=== PATIENT | male | born 1990 | race Two or more races ===

== ENCOUNTER 2016-06-10 18:51 | Inpatient (IN) | payer OTHER ==
[~2016-06-10] VITALS: Ht 177.8 cm; Wt 78.0 kg
[~2016-06-10 18:51] MED LIST: ALBU18HF IH; ALBU8.5H3 INH; ALBU8.5H5 INH; MOME13HF2 INHALATION; PRED20TA PO; PRED50 PO
[2016-06-10] MEDS ORDERED: ALBUTEROL 0.083% (NEB) 2.5 MG/3 ML AMP HHN STA (19:01)
[2016-06-10 19:16] LABS: ADD SCAN DIFF NO
[2016-06-10 19:19] LABS: HEMATOCRIT 49.3 % (42.0-52.0); HEMOGLOBIN 16.6 g/dl (14.0-18.0); MEAN CORPUSCULAR HGB CONC 33.7 g/dl (32.0-37.0); MEAN PLATELET VOLUME 9.1 fl (7.4-10.4); PLATELET COUNT 264 10^3/UL (140-415); RED BLOOD COUNT 5.73 10^6/ul (4.70-6.10); RED CELL DISTRIBUTION WIDTH 11.5 % (11.5-14.5); WHITE BLOOD COUNT 2.8 10^3/ul (4.8-10.8)
[2016-06-10] MEDS ORDERED: IPRATROPIUM (NEB) 0.5 MG/2.5 ML AMP INH ONE (19:30)
--- NOTE | 2016-06-10 19:39 | RADRPT ---
PROCEDURE: XR Chest. CLINICAL INDICATION: Dyspnea. TECHNIQUE: Single frontal view of the chest was obtained COMPARISON: None FINDINGS: The heart and mediastinum are within normal limits. Portable technique accentuates pulmonary vascular markings. There is no pleural effusion or pneumothorax. IMPRESSION: No acute disease. RPTAT: [facility] Physician Demarco Date Time Electronically viewed and signed by Janice Pitts Physician on 06/10/2016 19:39 RS/
[2016-06-10 19:57] LABS: POTASSIUM 3.9 mmol/L (3.5-5.1)
[2016-06-10 20:00] LABS: CALCIUM 9.1 mg/dl (8.4-10.2); CREATININE 1.19 mg/dl (0.61-1.24)
[2016-06-10] MEDS ORDERED: SOD CHLORIDE 0.9% 1,000 ML IV STA (20:06)
[2016-06-10 20:33] LABS: EOSINOPHILS # 0.1 10^3/ul (0.0-0.5); LYMPHOCYTES # 1.2 10^3/ul (0.8-2.9); NEUTROPHIL # 1.4 10^3/ul (1.6-7.5)
[2016-06-10] MEDS ORDERED: ACETAMINOPHEN 500 MG TAB ONE (21:06)
[2016-06-10] MEDS ORDERED: ACETAMINOPHEN 500 MG TAB PO STA (21:07)
[2016-06-10 21:32] LABS: ADD UMIC NO; URINE BILIRUBIN (Dip) NEGATIVE (NEGATIVE); URINE BLOOD (Dip) NEGATIVE (NEGATIVE); URINE COLOR LT. YELLOW (YELLOW); URINE GLUCOSE (Dip) NEGATIVE (NEGATIVE); URINE KETONES (Dip) NEGATIVE (NEGATIVE); URINE LEUKOCYTE ESTERASE (Dip) NEGATIVE (NEGATIVE); URINE NITRITE (Dip) NEGATIVE (NEGATIVE); URINE TOTAL PROTEIN (Dip) NEGATIVE (NEGATIVE); URINE UROBILINOGEN (Dip) 0.2 E.U./dL (0.1-1.0)
[2016-06-10] MEDS ORDERED: CEFEPIME 2GM/50 ML (PMX) 50 ML IVPB STA (22:10)
--- NOTE | 2016-06-10 22:11 | RADRPT ---
PROCEDURE: CT Abdomen and Pelvis without contrast. CLINICAL INDICATION: Abdominal and pelvic pain. TECHNIQUE: CT scan of the abdomen and pelvis without contrast was performed. Coronal and sagittal reformatted images were obtained from the axial source images. Images were reviewed on a high-resolu [employer] PACS workstation. Total exam DLP is 683.52 mGy-cm. CTDIvol is 11.65 mGy. One or more of the f ollowing dose reduction techniques were used: Automated exposure control, adjustment of the mA and/o r kV according to patient size, use of iterative reconstruction technique. COMPARISON: None. FINDINGS: The lung bases are normal. There is no pleural effusion. The liver is normal in size and diffusely decreased in attenuation. There is no focal hepatic lesio n. The gallbladder and bile ducts are normal. The spleen is normal in size. There is no focal splenic lesion. Both adrenals are normal with no enlargement or mass. The pancreas is unremarkable with no mass or evidence of pancreatitis. There is no renal mass or hydronephrosis. There is no renal calculus or ureteral calculus. The abdominal aorta is not dilated. There is no retroperitoneal lymphadenopathy or mass. There is no pelvic lymphadenopathy or mass. The bladder and distal ureters are normal. The periappendiceal region is unremarkable with no evidence of appendicitis. The appendix is well se en and appears normal. The bowel and mesentery are normal. There is no free fluid or free gas. The osseous structures are unremarkable with no fracture or lytic lesion. IMPRESSION: 1. Fatty metamorphosis of the liver. 2. No urinary tract calculus or hydronephrosis. 3. Normal appendix. 4. Otherwise normal CT scan of the abdomen and pelvis. RPTAT: QQ .Daniel Holt MD, MD Date Time Electronically viewed and signed by .Daniel Holt MD, MD on 06/10/2016 22:11 .R/
[2016-06-10] MEDS ORDERED: VANCOMYCIN 1 GM (PMX) 250 ML IVPB ONE (22:30)
[2016-06-10] MEDS ORDERED: SOD CHLORIDE 0.9% 1,000 ML IV SCH (22:46)
--- NOTE | 2016-06-10 22:52 | ERA ---
ER Documentation Chief Complaint Date/Time DATE: 06/10/16 TIME: 22:48 Chief Complaint Colds, cough w/yellow flame for 3 days HPI This is a 25-year-old male who presents to the emergency room for evaluation of fever, chills, cough productive of yellow phlegm for the past 3 days. The patient states that his father does have pneumonia. The patient was brought to the emergency room for further evaluation. He has not been on any medications at home and denies any aggravating or relieving factors for his symptoms. ROS All systems reviewed and are negative except as per history of present illness. Medications Home Meds Active Scripts Mometasone-Formoterol (Dulera) 100-5 Mcg - 13 Gm Hfa.aer.ad, 2 PUFFS INHALATION BID, #1 INHALER Prov:DONI HERRERA NP 03/07/16 Albuterol Sulfate* (Ventolin HFA*) 18 Gm Hfa.aer.ad, 2 PUFF IH Q4H Y for WHEEZING AND RESP DISTRESS, #1 EA Prov:HERO LINDA MD 11/30/14 Discontinued Scripts Prednisone* (Prednisone*) 20 Mg Tab, 40 MG PO DAILY for 4 Days, TAB Prov:DONI HERRERA NP 03/07/16 Albuterol Sulfate* (Proair HFA*) 8.5 Gm Hfa.aer.ad, 2 PUFF INH Q4, #1 INHALER Prov:DONI HERRERA NP 03/07/16 Mometasone-Formoterol (Dulera) 100-5 Mcg - 13 Gm Hfa.aer.ad, 2 PUFFS INHALATION BID, #1 INHALER Prov:RADHA LAO PA-C 01/14/16 Albuterol Sulfate* (Proair HFA*) 8.5 Gm Hfa.aer.ad, 2 PUFF INH Q4, #1 INHALER Prov:RADHA LAO PA-C 01/14/16 Prednisone* (Prednisone*) 20 Mg Tab, 40 MG PO DAILY for 4 Days, TAB Prov:RADHA LAO PA-C 01/14/16 Albuterol Sulfate* (Albuterol Sulfate* HFA) 8.5 Gm Hfa.aer.ad, 1-2 PUFF INH Q6, #2 INHALER Prov:ANNETTA ADAMS DO 12/19/15 Prednisone (Prednisone) 50 Mg Tab, 50 MG PO DAILY for 5 Days, TAB Prov:ANNETTA ADAMS DO 02/28/15 Allergies Allergies: Coded Allergies: No Known Allergy (Unverified , 06/10/16) PMhx/Soc Medical and Surgical Hx: pt denies Surgical Hx History of Surgery: No Anesthesia Reaction: No Hx Neurological Disorder: No Hx Respiratory Disorders: Yes (asthma) Hx Cardiac Disorders: No Hx Psychiatric Problems: No Hx Miscellaneous Medical Probl: No Hx Alcohol Use: Yes (occassional) Hx Substance Use: No Hx Tobacco Use: Yes (2-3CIGS/DAY) Smoking Status: Current every day smoker Physical Exam Vitals Vital Signs Date Time Temp Pulse Resp B/P Pulse Ox O2 Delivery O2 Flow Rate FiO2 06/10/16 21:02 103.5 125 20 116/88 100 Room Air 06/10/16 19:20 108 24 98 21 06/10/16 18:58 99.7 99 20 135/88 100 Physical Exam INITIAL VITAL SIGNS: Reviewed by me GENERAL: The patient is well developed and appropriate for usual state of health, appears to be in mild distress, warm to touch HEENT: Dry mucous membranes, pupils equal, round, and reactive to light. EOMI. There is no scleral icterus. NECK: C-spine is soft and supple, there is no meningismus. There is no cervical lymphadenopathy. LUNGS: Rales auscultated in the right and left lower lobes, mild wheezing HEART: Tachycardic, no murmurs, clicks, rubs or gallops. ABDOMEN: Bilateral CVAT, otherwise soft, non-tender, non-distended. There are bowel sounds in all four quadrants. No rebound or guarding. EXTREMITIES: There is no peripheral cyanosis or edema. No focal swelling or erythema. NEUROLOGICAL: The patient moves all four extremities with 5/5 strength. Cranial nerves II - XII are intact. Normal gait. Alert and oriented SKIN: There is no apparent rash or petechiae. HEME/LYMPHATIC: There is no evidence of excessive bruising or lymphedema. PSYCHIATRIC: The patient does not appear anxious or depressed. Result Diagram: 06/10/16 3109 06/10/16 1940 Results 24 hrs Laboratory Tests Test 06/10/16 19:05 06/10/16 19:40 06/10/16 20:40 06/10/16 21:10 White Blood Count 2.810^3/ul Red Blood Count 5.7310^6/ul Hemoglobin 16.6g/dl Hematocrit 49.3% Mean Corpuscular Volume 86.0fl Mean Corpuscular Hemoglobin 29.0pg Mean Corpuscular Hemoglobin Concent 33.7g/dl Red Cell Distribution Width 11.5% Platelet Count 79336^3/UL Mean Platelet Volume 9.1fl Neutrophils % 49.0% Band Neutrophils % 4.0% Lymphocytes % 44.0% Monocytes % % Eosinophils % 3.0% Neutrophils # 1.410^3/ul Lymphocytes # 1.210^3/ul Monocytes # 10^3/ul Eosinophils # 0.110^3/ul Lactic Acid Level 2.6mmol/L 3.6mmol/L Sodium Level 138mmol/L Potassium Level 3.9mmol/L Chloride Level 104mmol/L Carbon Dioxide Level 23mmol/L Anion Gap 15 Blood Urea Nitrogen 12mg/dl Creatinine 1.19mg/dl Glucose Level 104mg/dl Calcium Level 9.1mg/dl Creatine Kinase 112IU/L Urine Color LT. YELLOW Urine Clarity CLEAR Urine pH 5.5 Urine Specific [place] 1.010 Urine Ketones NEGATIVE Urine Nitrite NEGATIVE Urine Bilirubin NEGATIVE Urine Urobilinogen 0.2 E.U./dL Urine Leukocyte Esterase NEGATIVE Urine Hemoglobin NEGATIVE Urine Glucose NEGATIVE% Urine Total Protein NEGATIVE Current Medications Medications (Trade) Dose Ordered Sig/Lucie Route PRN Reason Start Time Stop Time Status Last Admin Dose Admin Albuterol (Proventil 0.083% (Neb)) 5 mg ONCE STAT HHN 06/10/16 19:01 06/10/16 19:03 DC 06/10/16 19:20 Ipratropium [place] 0.5 mg 0.5 mg ONCE ONCE INH 06/10/16 19:30 06/10/16 19:31 DC 06/10/16 19:20 Sodium Chloride (NS) 1,000 ml @ 1,000 mls/hr Q1H STAT IV 06/10/16 20:06 06/10/16 21:05 DC 06/10/16 20:12 Acetaminophen (Tylenol Tab) 500 mg STK-MED ONCE .ROUTE 06/10/16 21:06 06/10/16 21:07 DC Acetaminophen 1000 mg 1,000 mg ONCE STAT PO 06/10/16 21:07 06/10/16 21:08 DC 06/10/16 21:09 Cefepime HCl 50 ml @ 100 mls/hr ONCE STAT IVPB 06/10/16 22:10 06/10/16 22:39 DC 06/10/16 22:29 Vancomycin HCl (Vancocin) 250 ml @ 125 mls/hr ONCE ONCE IVPB 06/10/16 22:30 06/11/16 00:29 Procedures/MDM EKG: Rate/Rhythm: [Normal Sinus Rhythm] QRS, ST, T-waves: [No changes consistent w/ acute ischemia] Impression: [No evidence of ischemia or arrhythmia] Chest X-ray 1V Interpreted by me: Soft Tissue: No acute abnormalities Bones: No acute abnormalities Mediastinum/Cardiac Silhouette/Lungs: [No acute abnormalities] CT abdomen pelvis without: 1. Fatty metamorphosis of the liver. 2. No urinary tract calculus or hydronephrosis. 3. Normal appendix. 4. Otherwise normal CT scan of the abdomen and pelvis. This 25-year-old male presents to the emergency room for evaluation of generalized fatigue, a cough and fever. When I evaluated this patient originally his triage vitals were normal except for tachycardia. The patient did feel warm to the touch and I had the nurses to redo the patient's vitals which did demonstrate a fever of 103. This patient was tachycardic, he did have dry mucous membranes. A septic workup was started on this patient. He was given greater than 30 cc/kg of IV normal saline. This patient does have white blood cell count less than 3, he does have a fever and is tachycardic. He meets SIRS criteria however there is no source of infection. His chest x- ray is clear, and CT of the abdomen pelvis does not show any acute intra- abdominal pathology. My suspicion for early pneumonia as high as patient does have a cough with yellow phlegm. This patient's father does have pneumonia. The patient was started on broad-spectrum antibiotics with vancomycin and cefepime. He will be placed in for admission at this time under the care of her panel physician. We have been awaiting this patient's insurance company to call back however is been greater than 30 minutes of the patient will be admitted to panel. He will be placed on the telemetry floor. Critical Care: Excluding all billable procedures Time: 34 minutes Treatments/Evaluations: Close monitoring and treatment of unstable vital signs, cardiorespiratory, and neurologic status, while maintaining tight balance of fluid, respiratory, and cardiac interventions. Departure Diagnosis: Primary Impression: SIRS (systemic inflammatory response syndrome) Additional Impressions: Fever of unknown origin Lactic acidosis Condition: Fair KARRIE CARLSON DO Jun 10, 2016 22:52
[2016-06-10] MEDS ORDERED: ONDANSETRON 4 MG INJ IV PRN (23:00)
[2016-06-10] MEDS ORDERED: ACETAMINOPHEN 325 MG TAB PO PRN (23:00)
[2016-06-10] MEDS ORDERED: SODIUM CHLORIDE 0.9% 1L BAG IV* STA (23:03)
[2016-06-11] VITALS (13 sets, daily range): BP systolic 95–119; BP diastolic 50–73; PULSE 89–106; RESP 17–20; TEMP 101.3; Ht 177.8 cm; Wt 78.0 kg
[2016-06-11] MEDS ORDERED: ALBUTEROL/IPRATROPIUM (NEB) 3 ML AMP HHN PRN (06:30)
[2016-06-11] MEDS ORDERED: VANCOMYCIN IV PER PHARMACY XX SCH (06:30)
[2016-06-11] MEDS ORDERED: NACL 0.9% 3 ML SYG IV SCH (06:30)
[2016-06-11] MEDS: SOD CHLORIDE 0.9% 1,000 ML IV SCH ×2 (06:57→16:16)
[2016-06-11] MEDS: PIPER-TAZO 3.375 GM IV (PMX) 100 ML IVPB SCH ×3 (06:57→21:21)
--- NOTE | 2016-06-11 07:20 | HP ---
DATE OF ADMISSION: 06/10/2016 TIME SEEN: 2330. CHIEF COMPLAINT: Cough and fever. HISTORY OF PRESENT ILLNESS: The patient is a 25-year-old male with a history of asthma who presented to the emergency department with a chief complaint of cough and fever. He said his symptoms have b een going on for 3 days. The cough is productive of yellowish sputum. He denied any chest pain. He did report intermittent shortness of breath. No nausea, vomiting, abdominal pain or urinary symptom s. He did report that his father has been diagnosed with pneumonia. When patient presented to the ER, he had a temperature of 99.7 and heart rate of 99. Otherwise, the rest of his vitals were stable, including oxygen saturation of 100%, but while he was in the ER, th e patient became febrile with a temperature of 103.5 and tachycardic with a heart rate of 125. Laboratory values show a WBC of 2.8 and an initial lactic acid of 2.6, which increased to 3.6 and th en to 4.7. Urinalysis without micro was done and is not consistent with a UTI. A chest x-ray was d one and it shows no acute disease. CT of the abdomen and pelvis without contrast was done and it on ly showed fatty liver; otherwise no other findings. The patient was started on antibiotics, given I V fluid and admitted for further treatment. Influenza A and B in the ER were negative. REVIEW OF SYSTEMS: A 12-point review of systems was performed and negative except as mentioned in HP I. PAST MEDICAL HISTORY: Asthma. PAST SURGICAL HISTORY: Denies. SOCIAL HISTORY: Denies history of tobacco or illicit drug use, but drinks alcohol occasionally. ALLERGIES: NO KNOWN DRUG ALLERGIES. FAMILY HISTORY: Father currently diagnosed with pneumonia. PHYSICAL EXAMINATION: VITAL SIGNS: Blood pressure 105/70, heart rate 110, respiratory rate 20, temperature earlier was 10 3.5, oxygen saturation 100% on room air. GENERAL: No acute distress, answering questions appropriately. HEENT: No obvious head deformity. Pupils are reactive to light. Extraocular muscles intact. CARDIOVASCULAR: Tachycardic with regular rhythm. LUNGS: He has scattered minimal wheezing. ABDOMEN: Soft, nontender, nondistended. Positive bowel sounds. EXTREMITIES: No edema. NEUROLOGIC: No focal deficits. LABORATORY DATA: Pertinent positives as mentioned in HPI. IMAGING: Chest x-ray and CT abdomen and pelvis without contrast as mentioned in the HPI. IMPRESSION: 1. Sepsis as evidenced by fever, tachycardia and leukopenia, most likely secondary to developing pn eumonia. 2. History of asthma. 3. Lactic acidosis. 4. Leukopenia PLAN: He will be placed on a broad-spectrum antibiotic. We will follow up on the blood culture and urine culture results. He will receive IV fluids. As mentioned in the HPI, his influenza A and B were negative. We will provide pain medication as needed. We will consider infectious disease cons ult. Further workup and management per clinical course. Dictated By: JOSE HUDSON/NTS Conf#: [id number] DID#: [id number]
[2016-06-11] MEDS: VANCOMYCIN 1.25 GM in SOD CHLORIDE 0.9% 250 ML IVPB SCH ×2 (08:20→16:15)
[2016-06-11] MEDS: ENOXAPARIN 40 MG/0.4 ML SYG SC SCH (08:27)
[2016-06-11] MEDS: morphine 2 MG INJ IV PRN ×3 (08:28→21:32)
[2016-06-11 10:21] LABS: ADD SCAN DIFF NO
[2016-06-11 10:32] LABS: ABNORMAL IP MESSAGE 1; HEMATOCRIT 40.8 % (42.0-52.0); HEMOGLOBIN 14.1 g/dl (14.0-18.0); MEAN CORPUSCULAR HEMOGLOBIN 29.7 pg (29.0-33.0); MEAN CORPUSCULAR HGB CONC 34.6 g/dl (32.0-37.0); MEAN CORPUSCULAR VOLUME 86.1 fl (82.0-101.0); MEAN PLATELET VOLUME 9.5 fl (7.4-10.4); PLATELET COUNT 230 10^3/UL (140-415); RED BLOOD COUNT 4.74 10^6/ul (4.70-6.10); WHITE BLOOD COUNT 26.9 10^3/ul (4.8-10.8)
[2016-06-11 10:38] LABS: ALBUMIN 3.2 g/dl (3.3-4.9)
[2016-06-11 10:41] LABS: BILIRUBIN,DIRECT 0.5 mg/dl (0.00-0.20); BILIRUBIN,INDIRECT 0.6 mg/dl (0-1.1); BILIRUBIN,TOTAL 1.1 mg/dl (0.2-1.3); CREATININE 1.3 mg/dl (0.61-1.24)
[2016-06-11 10:42] LABS: ALBUMIN/GLOBULIN RATIO 1.23; CALCIUM 8.3 mg/dl (8.4-10.2); TOTAL PROTEIN 5.8 g/dl (6.1-8.1)
[2016-06-11 10:43] LABS: MAGNESIUM 1.5 mg/dl (1.7-2.5)
[2016-06-11] MEDS: SALMETEROL/FLUTICASONE 250/50 INHA INH SCH ×2 (10:47→21:20)
[2016-06-11] MEDS ORDERED: MONTELUKAST 10 MG TAB PO ONE (13:00)
--- NOTE | 2016-06-11 13:03 | PN ---
Date/Time of Note Date/Time of Note DATE: 06/11/16 TIME: 13:00 Assessment/Plan VTE Prophylaxis VTE Prophylaxis Intervention: other Lines/Catheters IV [facility]ter Type (from [facility]): Peripheral IV Urinary Cath still in place: No Assessment/Plan Problems: (1) Asthma, severe persistent Status: Chronic Comment: This is most likely bronchitis given the negative chest x-ray but the abnormal pulmonary symptoms and especially the rather obvious systemic inflammatory response syndrome. He is on antibiotics and is improving clinically. At home his home medication is Symbicort he has not been on Singulair also known as Montelukast. We will get that added into his regimen Qualifiers: Asthma complication type: with acute exacerbation Qualified Code: J45.51 - Severe persistent asthma with acute exacerbation (2) Asthma with acute exacerbation Status: Acute Comment: As above (3) Lactic acidosis Status: Resolved (4) SIRS (systemic inflammatory response syndrome) Status: Acute Comment: Improving with antibiotics (5) Liver function abnormality Status: Acute Comment: Check hepatitis serologies recheck labs in morning Subjective 24 Hr Interval Summary Free Text/Dictation Bobby Niue[place] gentleman sitting at bedside having lunch. Respiratory: shortness of breath, wheezing Cardiovascular: no complaints Gastrointestinal: no complaints Genitourinary: no complaints Exam/Review of Systems Vital Signs Vitals Vital Signs Date Time Temp Pulse Resp B/P Pulse Ox O2 Delivery O2 Flow Rate FiO2 06/11/16 12:14 98.4 86 20 110/67 95 06/11/16 09:30 Nasal Cannula 2.0 06/10/16 19:20 21 Intake and Output 06/10/16 06/10/16 06/11/16 15:00 23:00 07:00 Intake Total 1000 ml 3270 ml Output Total 1100 ml Balance 1000 ml 2170 ml Exam Constitutional: alert, oriented ENMT: mucosa pink and moist, nl external ears & nose, nl lips & teeth, nl nasal mucosa & septum Neck: non-tender, supple Respiratory: normal air movement, wheezing Cardiovascular: nl pulses, regular rate and rhythm Results Result Diagram: 06/11/16 0940 06/11/16 0940 Results 24 hrs Laboratory Tests Test 06/10/16 19:05 06/10/16 19:40 06/10/16 20:40 06/10/16 21:10 White Blood Count 2.8 L Red Blood Count 5.73 Hemoglobin 16.6 Hematocrit 49.3 Mean Corpuscular Volume 86.0 Mean Corpuscular Hemoglobin 29.0 Mean Corpuscular Hemoglobin Concent 33.7 Red Cell Distribution Width 11.5 Platelet Count 264 Mean Platelet Volume 9.1 Neutrophils % 49.0 Band Neutrophils % 4.0 Lymphocytes % 44.0 Monocytes % Eosinophils % 3.0 Neutrophils # 1.4 L Lymphocytes # 1.2 Monocytes # Eosinophils # 0.1 Lactic Acid Level 2.6 H 3.6 H Sodium Level 138 Potassium Level 3.9 Chloride Level 104 Carbon Dioxide Level 23 Anion Gap 15 Blood Urea Nitrogen 12 Creatinine 1.19 Glucose Level 104 Calcium Level 9.1 Creatine Kinase 112 Urine Color LT. YELLOW Urine Clarity CLEAR Urine pH 5.5 Urine Specific [place] 1.010 Urine Ketones NEGATIVE Urine Nitrite NEGATIVE Urine Bilirubin NEGATIVE Urine Urobilinogen 0.2 E.U./dL Urine Leukocyte Esterase NEGATIVE Urine Hemoglobin NEGATIVE Urine Glucose NEGATIVE Urine Total Protein NEGATIVE Test 06/10/16 22:33 06/11/16 09:40 Lactic Acid Level 4.7 *H 2.6 H White Blood Count 26.9 #H Red Blood Count 4.74 Hemoglobin 14.1 Hematocrit 40.8 L Mean Corpuscular Volume 86.1 Mean Corpuscular Hemoglobin 29.7 Mean Corpuscular Hemoglobin Concent 34.6 Red Cell Distribution Width 12.0 Platelet Count 230 Mean Platelet Volume 9.5 Neutrophils % Eosinophils % Neutrophils # Eosinophils # Sodium Level 140 Potassium Level 4.0 Chloride Level 106 Carbon Dioxide Level 23 Anion Gap 15 Blood Urea Nitrogen 14 Creatinine 1.30 H Glucose Level 118 Calcium Level 8.3 L Magnesium Level 1.5 L Total Bilirubin 1.1 Direct Bilirubin 0.50 H Indirect Bilirubin 0.6 Aspartate Amino Transf (AST/SGOT) 251 H Alanine Aminotransferase (ALT/SGPT) 373 H Alkaline Phosphatase 103 Lactate Dehydrogenase 900 H Total Protein 5.8 L Albumin 3.2 L Globulin 2.60 Albumin/Globulin Ratio 1.23 Medications Medications Current Medications Sodium Chloride (NS) 1,000 ml @ 100 mls/hr Q10H IV Last administered on t 06:57; Admin Dose 100 MLS/HR; Start 06/11/16 at 06:22; Stop 06/12/16 at 18:00 Ondansetron HCl (Zofran Inj) 4 mg Q6H PRN IV NAUSEA AND/OR VOMITING; Start 06/11 at 06:30 Acetaminophen (Tylenol Tab) 650 mg Q6H PRN PO PAIN LEVEL 1-3 OR FEVER; Start at 06:30 Morphine Sulfate (morphine) 2 mg Q4H PRN IV PAIN LEVEL 7-10 Last administered on 06/11/16 08:28; Admin Dose 2 MG; Start 06/11/16 at 06:30 Enoxaparin Sodium (Lovenox) 40 mg DAILY SC Last administered on 06/11/16 08:27 ; Admin Dose 40 MG; Start 06/11/16 at 09:00 Salmeterol Xinafoate/ Fluticasone 1 inh 1 inh BID INH Last administered on 10:47; Admin Dose 1 INH; Start 06/11/16 at 10:00 Piperacillin Sod/ Tazobactam Sod 100 ml @ 200 mls/hr Q6 IVPB Last administered on 06/11/16 06:57; Admin Dose 200 MLS/HR; Start 06/11/16 at 06:30 Vancomycin HCl/ Sodium Chloride (Vancocin/NS) 250 ml @ 83.333 mls/ hr Q8H IVPB Last administered on 06/11/16 08:20; Admin Dose 83.333 MLS/HR; Start 06/11/16 at 08:00 Miscellaneous Information (*Rx Drug Level Order Reminder*) VANCOMYCIN TROUGH 06/11 AT 2300 ONCE ONCE XX ; Start 06/11/16 at 23:00; Stop 06/11/16 at 23:01 SLAVA ROY MD Jun 11, 2016 13:03
[2016-06-11 13:30] LABS: LYMPHOCYTES # 0.8 10^3/ul (0.8-2.9); MONOCYTE # 1.1 10^3/ul (0.3-0.9); NEUTROPHIL # 16.1 10^3/ul (1.6-7.5)
[2016-06-11 13:31] LABS: PLATELET ESTIMATE PLT APPEAR ADEQUATE
[2016-06-11 15:22] LABS: HAAIG REFLEX REFLEX FILED
[2016-06-11 16:30] LABS: HEPATITIS B CORE ANTIBODY NEGATIVE (NEGATIVE)
[2016-06-11] MEDS: MONTELUKAST 10 MG TAB PO SCH ×2 (21:00→21:31)
[2016-06-12] VITALS (11 sets, daily range): BP systolic 112–134; BP diastolic 72–77; PULSE 79–91; RESP 19–20
[2016-06-12] MEDS: PIPER-TAZO 3.375 GM IV (PMX) 100 ML IVPB SCH ×4 (01:01→20:42)
[2016-06-12] MEDS: VANCOMYCIN 1.25 GM in SOD CHLORIDE 0.9% 250 ML IVPB SCH ×3 (01:35→16:17)
[2016-06-12] MEDS: SOD CHLORIDE 0.9% 1,000 ML IV SCH ×2 (02:22→12:04)
[2016-06-12] MEDS: ACETAMINOPHEN 325 MG TAB PO PRN ×3 (04:44→18:51)
[2016-06-12 07:44] LABS: ADD SCAN DIFF NO
[2016-06-12 07:49] LABS: HEMATOCRIT 41.1 % (42.0-52.0); HEMOGLOBIN 14.2 g/dl (14.0-18.0); MEAN CORPUSCULAR HEMOGLOBIN 29.4 pg (29.0-33.0); MEAN CORPUSCULAR HGB CONC 34.5 g/dl (32.0-37.0); MEAN CORPUSCULAR VOLUME 85.1 fl (82.0-101.0); MEAN PLATELET VOLUME 9.7 fl (7.4-10.4); PLATELET COUNT 167 10^3/UL (140-415); RED BLOOD COUNT 4.83 10^6/ul (4.70-6.10); RED CELL DISTRIBUTION WIDTH 12.2 % (11.5-14.5); WHITE BLOOD COUNT 17.9 10^3/ul (4.8-10.8)
[2016-06-12] MEDS: SALMETEROL/FLUTICASONE 250/50 INHA INH SCH ×2 (08:02→20:43)
[2016-06-12] MEDS: ENOXAPARIN 40 MG/0.4 ML SYG SC SCH (08:07)
[2016-06-12 08:15] LABS: ALBUMIN 3.3 g/dl (3.3-4.9)
[2016-06-12 08:16] LABS: POTASSIUM 3.7 mmol/L (3.5-5.1)
[2016-06-12 08:18] LABS: ALBUMIN/GLOBULIN RATIO 1.1; BILIRUBIN,DIRECT 0.2 mg/dl (0.00-0.20); BILIRUBIN,INDIRECT 0.6 mg/dl (0-1.1); BILIRUBIN,TOTAL 0.8 mg/dl (0.2-1.3); CALCIUM 8.9 mg/dl (8.4-10.2); CREATININE 1.05 mg/dl (0.61-1.24); TOTAL PROTEIN 6.3 g/dl (6.1-8.1)
[2016-06-12 08:24] LABS: MAGNESIUM 1.9 mg/dl (1.7-2.5); PHOSPHORUS 2.8 mg/dl (2.5-4.9)
[2016-06-12 10:16] LABS: EOSINOPHILS # 0.5 10^3/ul (0.0-0.5); LYMPHOCYTES # 1.8 10^3/ul (0.8-2.9); MONOCYTE # 0.5 10^3/ul (0.3-0.9); NEUTROPHIL # 12.2 10^3/ul (1.6-7.5)
--- NOTE | 2016-06-12 13:07 | PN ---
Date/Time of Note Date/Time of Note DATE: 06/12/16 TIME: 13:04 Assessment/Plan VTE Prophylaxis VTE Prophylaxis Intervention: other Lines/Catheters IV C[facility]ter Type (from [facility]): Peripheral IV Urinary Cath still in place: No Assessment/Plan Problems: (1) Asthma with acute exacerbation Status: Acute Comment: His breathing is improving with use appropriate treatment of the treatment of the underlying infection. Our blood cultures are positive for gram -negative cara. Further evaluation ongoing and treatment Qualifiers: Asthma severity: severe persistent Qualified Code: J45.51 - Severe persistent asthma with acute exacerbation (2) SIRS (systemic inflammatory response syndrome) Status: Acute Comment: His lactic levels will be rechecked. Has positive blood cultures for gram-negative rods. Given the headache even though he does not have meningeal signs and the redo CT scan of the head to make sure he does not have a bad frontal sinusitis or other issue (3) Lactic acidosis Status: Resolved Comment: Recheck (4) Liver function abnormality Status: Acute Comment: His liver chemistries have improved (5) Asthma, severe persistent Status: Chronic Comment: As above Qualifiers: Asthma complication type: with acute exacerbation Qualified Code: J45.51 - Severe persistent asthma with acute exacerbation Subjective 24 Hr Interval Summary Free Text/Dictation Patient reports that he has frontal headache. He says that light minimally bothers his eyes but he is able to move his head around without any neck pain. He reports his breathing is better than it was yesterday Constitutional: no complaints (Denies fever chills or sweats) Respiratory: no complaints (Shortness of breath has improved no more wheezing) Cardiovascular: no complaints Gastrointestinal: no complaints Genitourinary: no complaints Exam/Review of Systems Vital Signs Vitals Vital Signs Date Time Temp Pulse Resp B/P Pulse Ox O2 Delivery O2 Flow Rate FiO2 06/12/16 12:01 80 06/12/16 11:31 98.1 20 131/77 98 06/11/16 09:30 Nasal Cannula 2.0 06/10/16 19:20 21 Intake and Output 06/11/16 06/11/16 06/12/16 15:00 23:00 07:00 Intake Total 960 ml 2350 ml Output Total 3500 ml Balance 960 ml -1150 ml Exam Constitutional: alert, oriented Head: atraumatic, normocephalic Eyes: EOMI, nl conjunctiva, nl lids Neck: non-tender, supple Respiratory: clear to auscultation, normal air movement Cardiovascular: nl pulses, regular rate and rhythm Neurological: RECYCLING COORDINATOR II-XII intact, nl mental status, nl speech, nl strength, other (No meningeal signs normal reflexes) Results Result Diagram: 06/12/16 0655 06/12/16 0655 Results 24 hrs Laboratory Tests Test 06/11/16 13:09 06/11/16 14:40 06/11/16 17:55 06/11/16 23:24 Lactic Acid Level 2.9 H 3.2 H Hepatitis B Surface Antigen NEGATIVE Hepatitis B Core Total Antibody NEGATIVE Hepatitis C Antibody NEGATIVE Vancomycin Level Trough 13.9 Test 06/12/16 06:55 White Blood Count 17.9 #H Red Blood Count 4.83 Hemoglobin 14.2 Hematocrit 41.1 L Mean Corpuscular Volume 85.1 Mean Corpuscular Hemoglobin 29.4 Mean Corpuscular Hemoglobin Concent 34.5 Red Cell Distribution Width 12.2 Platelet Count 167 # Mean Platelet Volume 9.7 Neutrophils % 68.0 Band Neutrophils % 16.0 H Lymphocytes % 10.0 L Monocytes % 3.0 Eosinophils % 3.0 Neutrophils # 12.2 H Lymphocytes # 1.8 Monocytes # 0.5 Eosinophils # 0.5 Erythrocyte Sedimentation Rate 28 H Sodium Level 140 Potassium Level 3.7 Chloride Level 108 Carbon Dioxide Level 21 Anion Gap 15 Blood Urea Nitrogen 8 Creatinine 1.05 Glucose Level 120 Calcium Level 8.9 Phosphorus Level 2.8 Magnesium Level 1.9 Total Bilirubin 0.8 Direct Bilirubin 0.20 # Indirect Bilirubin 0.6 Aspartate Amino Transf (AST/SGOT) 98 #H Alanine Aminotransferase (ALT/SGPT) 259 H Alkaline Phosphatase 135 H Total Protein 6.3 Albumin 3.3 Globulin 3.00 Albumin/Globulin Ratio 1.10 Medications Medications Current Medications Sodium Chloride (NS) 1,000 ml @ 100 mls/hr Q10H IV Last administered on t 16:16; Admin Dose 100 MLS/HR; Start 06/11/16 at 06:22; Stop 06/12/16 at 18:00 Ondansetron HCl (Zofran Inj) 4 mg Q6H PRN IV NAUSEA AND/OR VOMITING; Start 06/11 at 06:30 Acetaminophen (Tylenol Tab) 650 mg Q6H PRN PO PAIN LEVEL 1-3 OR FEVER Last administered on 06/12/16 12:06; Admin Dose 650 MG; Start 06/11/16 at 06:30 Morphine Sulfate (morphine) 2 mg Q4H PRN IV PAIN LEVEL 7-10 Last administered on 06/11/16 21:32; Admin Dose 2 MG; Start 06/11/16 at 06:30 Enoxaparin Sodium (Lovenox) 40 mg DAILY SC Last administered on 06/12/16 08:07 ; Admin Dose 40 MG; Start 06/11/16 at 09:00 Salmeterol Xinafoate/ Fluticasone 1 inh 1 inh BID INH Last administered on 08:02; Admin Dose 1 INH; Start 06/11/16 at 10:00 Piperacillin Sod/ Tazobactam Sod 100 ml @ 200 mls/hr Q6 IVPB Last administered on 06/12/16 12:06; Admin Dose 200 MLS/HR; Start 06/11/16 at 06:30 Vancomycin HCl/ Sodium Chloride (Vancocin/NS) 250 ml @ 83.333 mls/ hr Q8H IVPB Last administered on 06/12/16 08:02; Admin Dose 83.333 MLS/HR; Start 06/11/16 at 08:00 Montelukast Sodium (Singulair) 10 mg HS PO Last administered on 06/11/16 21:31 ; Admin Dose 10 MG; Start 06/11/16 at 21:00 Miscellaneous Information (*Rx Drug Level Order Reminder*) VANCOMYCIN TROUGH 3 AT 0700 ONCE ONCE XX ; Start 06/13/16 at 07:00; Stop 06/13/16 at 07:01 SLAVA ROY MD Jun 12, 2016 13:07
[2016-06-12] MEDS: LEVOFLOXACIN 500 MG TAB PO SCH (13:21)
[2016-06-12] MEDS: MONTELUKAST 10 MG TAB PO SCH (20:42)
[2016-06-13] VITALS (12 sets, daily range): BP systolic 106–130; BP diastolic 57–82; PULSE 67–83; RESP 15–19
[2016-06-13] MEDS: PIPER-TAZO 3.375 GM IV (PMX) 100 ML IVPB SCH ×2 (00:30→05:54)
[2016-06-13] MEDS: ACETAMINOPHEN 325 MG TAB PO PRN ×2 (00:37→08:21)
[2016-06-13] MEDS: VANCOMYCIN 1.25 GM in SOD CHLORIDE 0.9% 250 ML IVPB SCH ×2 (00:39→10:15)
[2016-06-13] MEDS: LEVOFLOXACIN 500 MG TAB PO SCH (05:54)
--- NOTE | 2016-06-13 06:58 | RADRPT ---
PROCEDURE: CT Brain without contrast. CLINICAL INDICATION: Headaches. Sepsis. TECHNIQUE: CT scan of the brain was performed on a multidetector high-resolution CT scan. Axial im aging was obtained of the brain without contrast administration. Coronal and sagittal reformatted i mages were obtained from the axial source images. Standard CT scan of the head without contrast prot ocols were performed. The total exam CTDI equals 44.97 mGy and the total exam DLP equals 630.2 mGy-cm. One or more of the following dose reduction techniques were used: - Automated exposure control. - Adjustment of the mA and/or kV according to patient size. Use of iterative reconstruction technique. COMPARISON: None. FINDINGS: The ventricular system and peripheral CSF spaces are unremarkable. Negative for intracranial masses hemorrhages or midline shift. Bones and calvarium are intact. Paranasal sinuses and mastoids are unremarkable. IMPRESSION: 1. No evidence of intracranial masses hemorrhages or midline shift. 2. MRI of the brain with without contrast may be helpful for further evaluation. RPTAT:AAJJ Physician Billy Date Time Electronically viewed and signed by Physician Billy on 06/13/2016 06:58 /
[2016-06-13 07:33] LABS: ADD SCAN DIFF NO
[2016-06-13 07:34] LABS: BASOPHIL # 0.1 10^3/ul (0.0-0.1); BASOPHILS % 0.4 % (0.0-2.0); EOSINOPHILS # 0.6 10^3/ul (0.0-0.5); EOSINOPHILS % 4.8 % (0.0-7.0); HEMOGLOBIN 14.2 g/dl (14.0-18.0); MEAN CORPUSCULAR HGB CONC 33.8 g/dl (32.0-37.0); MEAN CORPUSCULAR VOLUME 85.7 fl (82.0-101.0); MEAN PLATELET VOLUME 9.8 fl (7.4-10.4); MONOCYTE # 0.8 10^3/ul (0.3-0.9); MONOCYTES % 6.2 % (0.0-11.0); NEUTROPHIL # 9.1 10^3/ul (1.6-7.5); NEUTROPHILS % 72.3 % (39.0-77.0); PLATELET COUNT 179 10^3/UL (140-415); RED CELL DISTRIBUTION WIDTH 12.3 % (11.5-14.5); WHITE BLOOD COUNT 12.7 10^3/ul (4.8-10.8)
[2016-06-13 07:44] LABS: ALBUMIN 3.5 g/dl (3.3-4.9)
[2016-06-13 07:45] LABS: POTASSIUM 3.7 mmol/L (3.5-5.1)
[2016-06-13 07:47] LABS: ALBUMIN/GLOBULIN RATIO 1.09; BILIRUBIN,INDIRECT 0.3 mg/dl (0-1.1); BILIRUBIN,TOTAL 0.3 mg/dl (0.2-1.3); CREATININE 0.92 mg/dl (0.61-1.24); TOTAL PROTEIN 6.7 g/dl (6.1-8.1)
[2016-06-13 07:48] LABS: CALCIUM 9.3 mg/dl (8.4-10.2)
[2016-06-13] MEDS: SALMETEROL/FLUTICASONE 250/50 INHA INH SCH ×2 (08:21→20:48)
[2016-06-13] MEDS: ENOXAPARIN 40 MG/0.4 ML SYG SC SCH (08:24)
[2016-06-13] MEDS: ONDANSETRON 4 MG INJ IV PRN ×2 (11:39→18:13)
--- NOTE | 2016-06-13 12:24 | PN ---
Date/Time of Note Date/Time of Note DATE: 06/13/16 TIME: 12:16 Assessment/Plan VTE Prophylaxis VTE Prophylaxis Intervention: LMWH Lines/Catheters IV [facility]from [facility] Peripheral IV Urinary Cath still in place: No Assessment/Plan Assessment/Plan 1. Fever with cough and yellowish sputum, likely pneumonia even chest X-ray does not show obvious sputum, change levaquin to rocephin and zithromax to treat atypical pneumonia(abnormal LFTs) 2. Headache with fever, LP r/o meningitis 3. Sepsis, improved 4. asthma, stable Subjective 24 Hr Interval Summary Free Text/Dictation still cough with yellowish sputum, headache, no neck stiffness Exam/Review of Systems Vital Signs Vitals Vital Signs Date Time Temp Pulse Resp B/P Pulse Ox O2 Delivery O2 Flow Rate FiO2 06/13/16 12:01 71 06/13/16 11:49 97.9 19 130/82 97 06/11/16 09:30 Nasal Cannula 2.0 06/10/16 19:20 21 Intake and Output 06/12/16 06/12/16 06/13/16 15:00 23:00 07:00 Intake Total 960 ml 1950 ml Output Total 1400 ml 2600 ml Balance -440 ml -650 ml Exam Constitutional: alert, oriented, well developed Psych: nl mood/affect, no complaints Head: atraumatic, normocephalic Eyes: EOMI, PERRL, nl conjunctiva, nl lids, nl sclera ENMT: nl external ears & nose, nl lips & teeth, nl nasal mucosa & septum Neck: non-tender, supple Respiratory: clear to auscultation, normal air movement, No congested cough, No crackles/rales, No diminished breath sounds, No intercostal retraction, No labored breathing, No other, No respirations, No tactile fremitus, No wheezing Cardiovascular: nl pulses, regular rate and rhythm, No S3, No S4, No bruits, No diastolic murmur, No edema, No gallop, No irregular rhythm, No jugular venous distention (JVD), No murmurs/extra sounds, No other, No rub, No systolic murmur Gastrointestinal: nl liver, spleen, non-tender, soft, No ascites, No bowel sounds, No distended, No firm, No hepatomegaly, No mass , No other, No rebound or guarding, No splenomegaly, No surgical scars, No tender Musculoskeletal: nl extremities to inspection Extremities: normal pulses, No calf tenderness, No clubbing, No cyanosis, No edema, No other, No palpable cord, No pitting pedal edema, No tenderness Neurological: WAX COATING MACHINE TENDER II-XII intact, nl mental status, nl speech, nl strength Skin: nl turgor Lymph: nl lymph nodes Results Result Diagram: 06/13/16 0700 06/13/16 0700 Results 24 hrs Laboratory Tests Test 06/12/16 14:50 06/13/16 07:00 Lactic Acid Level 0.9 0.8 White Blood Count 12.7 #H Red Blood Count 4.90 Hemoglobin 14.2 Hematocrit 42.0 Mean Corpuscular Volume 85.7 Mean Corpuscular Hemoglobin 29.0 Mean Corpuscular Hemoglobin Concent 33.8 Red Cell Distribution Width 12.3 Platelet Count 179 Mean Platelet Volume 9.8 Neutrophils % 72.3 Lymphocytes % 16.0 Monocytes % 6.2 Eosinophils % 4.8 Basophils % 0.4 Nucleated Red Blood Cells % 0.0 Neutrophils # 9.1 H Lymphocytes # 2.0 Monocytes # 0.8 Eosinophils # 0.6 H Basophils # 0.1 Nucleated Red Blood Cells # 0.0 Erythrocyte Sedimentation Rate 38.0 H Sodium Level 140 Potassium Level 3.7 Chloride Level 107 Carbon Dioxide Level 22 Anion Gap 15 Blood Urea Nitrogen 7 Creatinine 0.92 Glucose Level 98 Calcium Level 9.3 Total Bilirubin 0.3 Direct Bilirubin 0.00 # Indirect Bilirubin 0.3 Aspartate Amino Transf (AST/SGOT) 54 H Alanine Aminotransferase (ALT/SGPT) 201 H Alkaline Phosphatase 128 H Total Protein 6.7 Albumin 3.5 Globulin 3.20 Albumin/Globulin Ratio 1.09 Vancomycin Level Trough 16.5 Medications Medications Current Medications Ondansetron HCl (Zofran Inj) 4 mg Q6H PRN IV NAUSEA AND/OR VOMITING Last administered on 06/13/16 11:39; Admin Dose 4 MG; Start 06/11/16 at 06:30 Acetaminophen (Tylenol Tab) 650 mg Q6H PRN PO PAIN LEVEL 1-3 OR FEVER Last administered on 06/13/16 08:21; Admin Dose 650 MG; Start 06/11/16 at 06:30 Morphine Sulfate (morphine) 2 mg Q4H PRN IV PAIN LEVEL 7-10 Last administered on 06/11/16 21:32; Admin Dose 2 MG; Start 06/11/16 at 06:30 Enoxaparin Sodium (Lovenox) 40 mg DAILY SC Last administered on 06/13/16 08:24 ; Admin Dose 40 MG; Start 06/11/16 at 09:00 Salmeterol Xinafoate/ Fluticasone 1 inh 1 inh BID INH Last administered on 08:21; Admin Dose 1 INH; Start 06/11/16 at 10:00 Piperacillin Sod/ Tazobactam Sod (Zosyn 3.375gm/ 100 ml (Pmx)) 100 ml @ 200 mls /hr Q6 IVPB Last administered on 06/13/16 05:54; Admin Dose 200 MLS/HR; Start 06/11/16 at 06:30 Montelukast Sodium (Singulair) 10 mg HS PO Last administered on 06/12/16 20:42 ; Admin Dose 10 MG; Start 06/11/16 at 21:00 Levofloxacin 500 mg 500 mg DAILY@06 PO Last administered on 06/13/16 05:54; Admin Dose 500 MG; Start 06/12/16 at 13:30; Stop 06/18/16 at 13:29 Vancomycin HCl (Vancocin) 250 ml @ 125 mls/hr Q8H IVPB ; Start 06/13/16 at 16:00 BRAYAN COTTON MD Jun 13, 2016 12:24
[2016-06-13 13:12] LABS: INR 0.96; PROTIME 12.8 Sec (12.2-14.2)
[2016-06-13 13:13] LABS: PARTIAL THROMBOPLASTIN TIME 31.8 Sec (25.0-35.0)
[2016-06-13] MEDS ORDERED: AZITHROMYCIN 500 MG in SOD CHLORIDE 0.9% 250 ML IVPB SCH (13:30)
[2016-06-13] MEDS: CEFTRIAXONE 2 GM/50 ML (PMX) 50 ML IVPB SCH (13:59)
[2016-06-13] MEDS ORDERED: VANCOMYCIN 1 GM in NS 250 ML IVPB SCH (16:00)
--- NOTE | 2016-06-13 16:42 | RADRPT ---
PROCEDURE: Fluoroscopic guided lumbar puncture. CLINICAL INDICATION: Headache. TECHNIQUE: Prior to the procedure, informed consent was obtained. Risks including bleeding and in fection were explained to the patient. The patient understood and was willing to proceed. A proced ural pause was performed. The patient's name, date of , and procedure to be performed were oscar ified. Using local anesthetic, sterile technique, and fluoroscopic guidance, a 22-gauge spinal needle was a dvanced into the thecal sac at the L4-5 level. Opening pressure was 18 cm of water. 8 mL of clear cerebrospinal fluid was aspirated and sent for laboratory analysis. The needle was removed. A dres sing was applied. The patient tolerated the procedure well. A total of 0.1 minutes of fluoroscopy time was used. COMPARISON: None. FINDINGS: Images demonstrate the needle at the L4-5 level in the thecal sac. IMPRESSION: Satisfactory fluoroscopic guided lumbar puncture. The opening pressure was 10 cm of water. RPTAT: QQ .Daniel Holt MD, MD Date Time Electronically viewed and signed by .Daniel Holt MD, on 06/13/2016 16:41 .R/
[2016-06-13 18:12] LABS: # OF CELLS COUNTED 100
[2016-06-13 19:11] LABS: GLUCOSE,CSF 65 mg/dl (50-80)
[2016-06-13 19:47] LABS: CSF COLOR COLORLESS; CSF#TUBES REC'D 3
[2016-06-13 19:48] LABS: CSF#TUBE COUNT TUBE#3
[2016-06-13] MEDS: MONTELUKAST 10 MG TAB PO SCH (20:48)
[2016-06-14] VITALS (9 sets, daily range): BP systolic 105–127; BP diastolic 64–82; PULSE 52–74; RESP 15–20
[2016-06-14] MEDS: ACETAMINOPHEN 325 MG TAB PO PRN ×2 (01:26→08:34)
[2016-06-14 07:25] LABS: ADD SCAN DIFF NO
[2016-06-14 07:37] LABS: BASOPHIL # 0.1 10^3/ul (0.0-0.1); BASOPHILS % 0.6 % (0.0-2.0); EOSINOPHILS # 0.6 10^3/ul (0.0-0.5); EOSINOPHILS % 5.6 % (0.0-7.0); HEMATOCRIT 47.5 % (42.0-52.0); HEMOGLOBIN 16.1 g/dl (14.0-18.0); LYMPHOCYTES # 2.9 10^3/ul (0.8-2.9); LYMPHOCYTES % 26.9 % (15.0-51.0); MEAN CORPUSCULAR HEMOGLOBIN 28.8 pg (29.0-33.0); MEAN CORPUSCULAR HGB CONC 33.9 g/dl (32.0-37.0); MEAN CORPUSCULAR VOLUME 84.8 fl (82.0-101.0); MEAN PLATELET VOLUME 9.7 fl (7.4-10.4); MONOCYTE # 0.6 10^3/ul (0.3-0.9); MONOCYTES % 5.2 % (0.0-11.0); NEUTROPHIL # 6.6 10^3/ul (1.6-7.5); NEUTROPHILS % 60.6 % (39.0-77.0); PLATELET COUNT 248 10^3/UL (140-415); RED CELL DISTRIBUTION WIDTH 12.1 % (11.5-14.5); WHITE BLOOD COUNT 10.9 10^3/ul (4.8-10.8)
[2016-06-14 07:56] LABS: ALBUMIN/GLOBULIN RATIO 1.17; BILIRUBIN,INDIRECT 0.2 mg/dl (0-1.1); BILIRUBIN,TOTAL 0.2 mg/dl (0.2-1.3); CREATININE 0.91 mg/dl (0.61-1.24); TOTAL PROTEIN 7.4 g/dl (6.1-8.1)
[2016-06-14 07:57] LABS: CALCIUM 9.8 mg/dl (8.4-10.2)
[2016-06-14] MEDS: ENOXAPARIN 40 MG/0.4 ML SYG SC SCH (08:26)
[2016-06-14] MEDS: SALMETEROL/FLUTICASONE 250/50 INHA INH SCH (08:34)
[2016-06-14] MEDS ORDERED: AZITHROMYCIN 500MG/NS (PMX) 250 ML IV SCH (10:00)
[2016-06-14] MEDS: CEFTRIAXONE 2 GM/50 ML (PMX) 50 ML IVPB SCH (13:14)
[2016-06-14] MEDS ORDERED: LEVO500T10 PO (13:18)
--- NOTE | 2016-06-14 13:27 | DS ---
Date/Time of Note Date/Time of Note DATE: 06/14/16 TIME: 13:19 Discharge Summary Admission/Discharge Info Admit Date/Time Jun 10, 2016 at 22:48 Discharge Date/Time Final Diagnosis 1. Community acquired pneumonia, likely atypical, stable, omn levaquin 2. Asthma, stable 3. Abnormal liver enzymes, likely atypical pneumonia related, improving, follow up with PCP Patient Condition: Stable Hospital Course The patient is a 25-year-old male with a history of asthma who presented to the emergency department with a chief complaint of cough and fever. He said his symptoms have been going on for 3 days. The cough is productive of yellowish sputum. He denied any chest pain. He did report intermittent shortness of breath. No nausea, vomiting, abdominal pain or urinary symptoms. He did report that his father has been diagnosed with pneumonia. When patient presented to the ER, he had a temperature of 99.7 and heart rate of 99. Otherwise, the rest of his vitals were stable, including oxygen saturation of 100%, but while he was in the ER, the patient became febrile with a temperature of 103.5 and tachycardic with a heart rate of 125. Laboratory values show a WBC of 2.8 and an initial lactic acid of 2.6, which increased to 3.6 and then to 4.7. Urinalysis without micro was done and is not consistent with a UTI. A chest x-ray was done and it shows no acute disease. CT of the abdomen and pelvis without contrast was done and it only showed fatty liver; otherwise no other findings. The patient was started on antibiotics, given IV fluid and admitted for further treatment. Influenza A and B in the ER were negative. I reviewed the CXR on admission, that indicates some infiltrates at right lower lobe. Patient is treated wityh antibiotics, symptoms improved. Je will be on levaquin for 5 more days. FCor the abnormal LFTs, it is considered part of the atypical pneumonia. Patient will follow up with PCP for repeat LFTs. Hepatitis panel is negative. Patient had headache, LP was done on 06/13/2016, CSF is unremarkable. Headache is resolved today Home Meds Active Scripts Levofloxacin* (Levofloxacin*) 500 Mg Tablet, 500 MG PO DAILY for 5 Days, TAB Prov:BRAYAN COTTON MD 06/14/16 Mometasone-Formoterol (Dulera) 100-5 Mcg - 13 Gm Hfa.aer.ad, 2 PUFFS INHALATION BID, #1 INHALER Prov:DONI HERRERA NP 03/07/16 Albuterol Sulfate* (Ventolin HFA*) 18 Gm Hfa.aer.ad, 2 PUFF IH Q4H Y for WHEEZING AND RESP DISTRESS, #1 EA Prov:HERO LINDA MD 11/30/14 Discontinued Scripts Prednisone* (Prednisone*) 20 Mg Tab, 40 MG PO DAILY for 4 Days, TAB Prov:DONI HERRERA NP 03/07/16 Albuterol Sulfate* (Proair HFA*) 8.5 Gm Hfa.aer.ad, 2 PUFF INH Q4, #1 INHALER Prov:DONI HERRERA NP 03/07/16 Mometasone-Formoterol (Dulera) 100-5 Mcg - 13 Gm Hfa.aer.ad, 2 PUFFS INHALATION BID, #1 INHALER Prov:RADHA LAO PA-C 01/14/16 Albuterol Sulfate* (Proair HFA*) 8.5 Gm Hfa.aer.ad, 2 PUFF INH Q4, #1 INHALER Prov:RADHA LAO PA-C 01/14/16 Prednisone* (Prednisone*) 20 Mg Tab, 40 MG PO DAILY for 4 Days, TAB Prov:RADHA LAO PA-C 01/14/16 Albuterol Sulfate* (Albuterol Sulfate* HFA) 8.5 Gm Hfa.aer.ad, 1-2 PUFF INH Q6, #2 INHALER Prov:ANNETTA ADAMS DO 02/28/15 Prednisone (Prednisone) 50 Mg Tab, 50 MG PO DAILY for 5 Days, TAB Prov:ANNETTA ADAMS DO 02/28/15 Follow-up Plan PCP in 1-2 weeks Pending Labs Laboratory Tests Test 06/13/16 17:00 06/14/16 06:27 CSF Tubes Submitted 3 CSF Volume 7.0ml CSF Appearance CLEAR CSF Color COLORLESS CSF WBC 2/uL (0-10) CSF RBC /uL (0-0) CSF Cell Count Tube # TUBE#3 CSF Total Cells Counted 100 CSF Neutrophils % 50% CSF Lymphocytes % 50% CSF Monocytes % 0% CSF Crenated Cells % CSF Glucose 65mg/dl (50-80) CSF Total Protein 32mg/dl (12-60) White Blood Count 10.910^3/ul (4.8-10.8) Red Blood Count 5.6010^6/ul (4.70-6.10) Hemoglobin 16.1g/dl (14.0-18.0) Hematocrit 47.5% (42.0-52.0) Mean Corpuscular Volume 84.8fl (82.0-101.0) Mean Corpuscular Hemoglobin 28.8pg (29.0-33.0) Mean Corpuscular Hemoglobin Concent 33.9g/dl (32.0-37.0) Red Cell Distribution Width 12.1% (11.5-14.5) Platelet Count 47220^3/UL (140-415) Mean Platelet Volume 9.7fl (7.4-10.4) Neutrophils % 60.6% (39.0-77.0) Lymphocytes % 26.9% (15.0-51.0) Monocytes % 5.2% (0.0-11.0) Eosinophils % 5.6% (0.0-7.0) Basophils % 0.6% (0.0-2.0) Nucleated Red Blood Cells % 0.0/100WBC (0.0-0.0) Neutrophils # 6.610^3/ul (1.6-7.5) Lymphocytes # 2.910^3/ul (0.8-2.9) Monocytes # 0.610^3/ul (0.3-0.9) Eosinophils # 0.610^3/ul (0.0-0.5) Basophils # 0.110^3/ul (0.0-0.1) Nucleated Red Blood Cells # 0.010^3/ul (0.0-0.0) Sodium Level 138mmol/L (135-144) Potassium Level 4.0mmol/L (3.5-5.1) Chloride Level 105mmol/L (97-110) Carbon Dioxide Level 21mmol/L (21-31) Anion Gap 16 (8-16) Blood Urea Nitrogen 12mg/dl (7-20) Creatinine 0.91mg/dl (0.61-1.24) Glucose Level 94mg/dl (70-220) Calcium Level 9.8mg/dl (8.4-10.2) Total Bilirubin 0.2mg/dl (0.2-1.3) Direct Bilirubin 0.00mg/dl (0.00-0.20) Indirect Bilirubin 0.2mg/dl (0-1.1) Aspartate Amino Transf (AST/SGOT) 67IU/L (15-46) Alanine Aminotransferase (ALT/SGPT) 190IU/L (13-69) Alkaline Phosphatase 193IU/L (42-121) Total Protein 7.4g/dl (6.1-8.1) Albumin 4.0g/dl (3.3-4.9) Globulin 3.40g/dl (1.3-3.2) Albumin/Globulin Ratio 1.17 BRAYAN COTTON MD Jun 14, 2016 13:27
--- NOTE | 2016-06-17 11:48 | PQ ---
Date/Time of Note Date/Time of Note DATE: 06/17/16 TIME: 11:[address] Simon, Documentation in the medical record indicates this patient has been admitted with or diagnosed as having: Sepsis as evidenced by fever, tachycardia and leukopenia, most likely secondary to developing pneumonia and the following clinical indicators : WBC = 2.8--> 26.9 T= 103.5 RI = 108 Lactic Acid = 2.6- -> 4.7 Throughout the course of the admission, documentation of this diagnosis has discontinued. Based on your medical judgment, please clarify the diagnosis and document any applicable treatment plan. To facilitate accurate and complete coding, please taylor ( x ) the suspected diagnosis that apply: ( X ) Sepsis ruled in ( ) Sepsis ruled out ( ) Unable to determine ( ) Others Please provide your response by clicking edit document, making your choice ( x ), click ok/save and finally click sign. You may also document your response on your progress notes. Thank you for your time. Daniel Luke RN, BSN, CCS, CCDS Clinical Impregnator Helper [employer] Information Management, [employer] and Coding Services [phone] Room # 1525 - [address]~ [address] DANIEL LUKE Jun 17, 2016 11:48 BRAYAN SIMON MD Jun 17, 2016 15:51
== END 2016-06-14 16:30 | disposition home or self-care (01) | DRG 871 ==
LOC: E/R 18:51 → MS4 22:48
PROVIDERS: ADMIT Internal Medicine; ATTEND Internal Medicine
PROC: 009U3ZX Drainage of Spinal Canal, Percutaneous Approach, Diagnostic (ICD-10-PCS; principal; 2016-06-13)
PROC: B01BYZZ Fluoroscopy of Spinal Cord using Other Contrast (ICD-10-PCS; 2016-06-13)
DX: A41.9 Sepsis, unspecified organism (principal); J18.9 Pneumonia, unspecified organism; E87.2 Acidosis; J45.51 Severe persistent asthma with (acute) exacerbation; Y95 Nosocomial condition
CPT/HCPCS: 36415; 70470; 71010; 74176; 80048; 80053; 80202; 81003; 82550; 82553; 82945; 83605; 83615; 83735; 84100; 84157; 84484; 85025; 85610; 85651; 85730; 86704; 86709; 86803; 87040; 87070; 87086; 87340; 87400; 89050; 94664; 96361; 96365; 96375; J0456; J0692; J1650; J2270; J2405; J2543; J3370; J7030; J7050

== ENCOUNTER 2016-12-11 10:25 | Emergency (ER) | payer OTHER ==
[~2016-12-11] VITALS: Ht 175.3 cm; Wt 78.5 kg
[~2016-12-11 10:25] MED LIST changes: -ALBU8.5H3 INH; -ALBU8.5H5 INH; +LEVO500T10 PO; -PRED20TA PO; -PRED50 PO
[2016-12-11 10:26] VITALS: Ht 175.3 cm; Wt 78.5 kg
[2016-12-11] MEDS ORDERED: IPRATROPIUM (NEB) 0.5 MG/2.5 ML AMP ONE (10:32)
[2016-12-11] MEDS ORDERED: IPRATROPIUM (NEB) 0.5 MG/2.5 ML AMP NEB STA (10:32)
[2016-12-11] MEDS ORDERED: METHYLPREDNISOLONE 125 MG INJ IV STA (10:32)
[2016-12-11] MEDS ORDERED: ALBUTEROL 0.083% (NEB) 2.5 MG/3 ML AMP ONE (10:32)
[2016-12-11] MEDS ORDERED: ALBUTEROL 0.5% (NEB) 2.5 MG/0.5 ML AMP INH STA (10:32)
[2016-12-11] MEDS ORDERED: METHYLPREDNISOLONE 125 MG INJ ONE (10:37)
--- NOTE | 2016-12-11 11:23 | RADRPT ---
PROCEDURE: XR Chest. CLINICAL INDICATION: Asthma exacerbation TECHNIQUE: Single frontal view of the chest was obtained COMPARISON: None FINDINGS: The heart and mediastinum are within normal limits. The lungs are clear. There is no pleural effusion or pneumothorax. The bones and soft tissue show no acute change. IMPRESSION: No definite abnormalities are identified. RPTAT:AAJJ Freddy Tapia Physician Date Time Electronically viewed and signed by Freddy Tapia Physician on 12/11/2016 11:23 /
[2016-12-11] MEDS ORDERED: ALBU18HF INHALATION (12:13)
[2016-12-11] MEDS ORDERED: SYMB80120 INHALATION (12:13)
[2016-12-11 12:19] VITALS: BP 119/79; PULSE 94; RESP 20; TEMP 98.3
--- NOTE | 2016-12-11 17:47 | ERD ---
ER Documentation Chief Complaint Date/Time DATE: 12/11/16 TIME: 17:39 Chief Complaint asthma attack, wheezing, breathing labored & uneven, rt called HPI 26-year-old male with history of asthma present ED today with acute asthma exacerbation. Patient stated that the shortness of breath started this morning. He ran out of albuterol inhaler. Patient had been using his albuterol inhaler about 5 times a day recently. In the past, he has used Symbicort to control his asthma symptoms with good results. However his current PCP had not prescribed him with Symbicort for some time. His fever or chills. Denies cough or runny nose. Denies history of intubation. His any other medical history. ROS All systems reviewed and are negative except as per history of present illness. Medications Home Meds Active Scripts Budesonide-Formoterol Fumarate* (Symbicort*) 80-4.5 Inha, 2 PUFFS INHALATION BID , #1 EACH Prov:JOHN NEGRON NP 12/11/16 Albuterol Sulfate* (Ventolin HFA*) 18 Gm Hfa.aer.ad, 2 PUFF INHALATION Q4H, #1 INHALER Prov:JOHN NEGRON NP 12/11/16 Levofloxacin* (Levofloxacin*) 500 Mg Tablet, 500 MG PO DAILY for 5 Days, TAB Prov:BRAYAN COTTON MD 06/14/16 Mometasone-Formoterol (Dulera) 100-5 Mcg - 13 Gm Hfa.aer.ad, 2 PUFFS INHALATION BID, #1 INHALER Prov:DONI HERRERA NP 03/07/16 Albuterol Sulfate* (Ventolin HFA*) 18 Gm Hfa.aer.ad, 2 PUFF IH Q4H Y for WHEEZING AND RESP DISTRESS, #1 EA Prov:HERO LINDA MD 11/30/14 Allergies Allergies: Coded Allergies: No Known Allergy (Unverified , 06/10/16) PMhx/Soc History of Surgery: No Anesthesia Reaction: No Hx Neurological Disorder: No Hx Respiratory Disorders: No Hx Cardiac Disorders: No Hx Psychiatric Problems: No Hx Miscellaneous Medical Probl: No Hx Alcohol Use: No Hx Substance Use: No Hx Tobacco Use: No Smoking Status: Never smoker Physical Exam Vitals Vital Signs Date Time Temp Pulse Resp B/P Pulse Ox O2 Delivery O2 Flow Rate FiO2 12/11/16 12:19 98.3 94 20 119/79 100 Room Air 12/11/16 10:44 Nasal Cannula 3 12/11/16 10:36 101 30 95 Nasal Cannula 4.0 12/11/16 10:36 4.0 12/11/16 10:26 98.4 114 26 95 Physical Exam General: Well-developed, well-nourished, conscious and coherent, in acute respiratory distress Skin: Warm and dry without rash, good texture and turgor Head: Normocephalic without evidence of trauma Eyes: Sclera and conjunctivae normal; pupils equal, round, and reactive to light; extraocular movements are intact Neck: Supple without meningismus or adenopathy. Carotids are equal. Trachea midline. No bruits or JVD Chest: Normal AP diameter. Retraction and accessory muscle use, wheezing noted throughout. Heart: Tachycardia with regular rhythm. No murmur, rub, or gallops heard Extremities: Full range of motion. Good strength bilaterally. No clubbing, cyanosis, or edema. Peripheral pulses are intact. Sensation intact Neuro: Alert and oriented 4, GCS 15. Cranial nerves grossly intact. Motor and sensory exams nonfocal. Moves all extremities. Speech clear. Gait normal Results 24 hrs Current Medications Medications (Trade) Dose Ordered Sig/Lucie Route PRN Reason Start Time Stop Time Status Last Admin Dose Admin Ipratropium [place] (Atrovent 0.02% (Neb)) 1 mg ONCE STAT NEB 12/11/16 10:32 12/11/16 10:34 DC 12/11/16 10:35 Albuterol (Proventil 0.5% (Neb)) 10 mg ONCE STAT INH 12/11/16 10:32 12/11/16 10:34 DC 12/11/16 10:36 Methylprednisolone Sodium Succinate (Solu-Medrol) 125 mg ONCE STAT IV 12/11/16 10:32 12/11/16 10:34 DC 12/11/16 10:40 PROCEDURE: XR Chest. CLINICAL INDICATION: Asthma exacerbation TECHNIQUE: Single frontal view of the chest was obtained COMPARISON: None FINDINGS: The heart and mediastinum are within normal limits. The lungs are clear. There is no pleural effusion or pneumothorax. The bones and soft tissue show no acute change. IMPRESSION: No definite abnormalities are identified. RPTAT:AAJJ Physician Moe Date Time Electronically viewed and signed by Freddy Tapia Physician on 12/11/2016 11: 23 MC/ CC: JOHN NEGRON MARKETING MANAGER Procedures/MDM 26-year-old male presented ED was acute asthma exacerbation. X-ray: Unremarkable EKG: Tachycardia rate 103 bpm, normal axis. No ST segment elevation or depression. No ectopic beats. No QT prolongation. No other EKG abnormalities. EKG read by Dr. Bates. Patient Solu-Medrol 125 mg IV, and 1 hour continuous nebulizer treatment of 10 mg albuterol and 1 mg Atrovent. After the nebulizer treatment, patient reports breathing much better. Repeat exam showed that patient no longer in any respiratory distress, no more retraction or accessory muscle use. Lung sounds are clear throughout with only minor wheezing remaining. O2 sat improved from 95% on room air on arrival to 100% on room air at this time. I feel patient now is stable to be discharged home for outpatient management. I will prescribe Symbicort and albuterol HFA for him, also advised patient to follow- up with his PCP for pulmonology referral. Patient appears well, stable for discharge and outpatient management. Medical decision making shared with patient and family. Education provided to patient and family. Patient and family expressed understanding of the plan. Medications on discharge: Symbicort, albuterol HFA. Follow-up: Primary care provider in 2-3 days or return to ED if worse. Disclaimer: Inadvertent spelling and grammatical errors are likely due to EHR/ dictation software use and do not reflect on the overall quality of patient care. Also, please note that the electronic time recorded on this note does not necessarily reflect the actual time of the patient encounter. Departure Diagnosis: Primary Impression: Asthma exacerbation Condition: Stable Patient Instructions: Asthma, Acute (Adult) Additional Instructions: Call your primary care doctor TOMORROW for an appointment during the next 2-3 days.See the doctor sooner or return here if your condition worsens before your appointment time. Ask your primary provider for a pulmonology referral. JOHN NEGRON. PAT Dec 11, 2016 17:47
== END 2016-12-11 12:20 | disposition home or self-care (01) ==
LOC: FTE 10:25
DX: J45.901 Unspecified asthma with (acute) exacerbation (principal)
CPT/HCPCS: 71010; 93005; 94644; 96374; J2930; Z7502; Z7610

== ENCOUNTER 2017-03-08 18:26 | Emergency (ER) | payer OTHER ==
[~2017-03-08] VITALS: Ht 172.7 cm; Wt 83.5 kg
[~2017-03-08 18:26] MED LIST changes: +ALBU18HF INHALATION; +SYMB80120 INHALATION
[2017-03-08 18:43] VITALS: Ht 172.7 cm; Wt 83.5 kg
[2017-03-08] MEDS ORDERED: ALBU18HF IH (19:30)
[2017-03-08] MEDS ORDERED: CETI10CA PO (19:30)
[2017-03-08] MEDS ORDERED: PRED50TA PO (19:30)
[2017-03-08] MEDS ORDERED: MOME13HF2 INHALATION (19:30)
[2017-03-08] MEDS ORDERED: GUAI120S26 PO (19:30)
--- NOTE | 2017-03-08 19:59 | ERD ---
ER Documentation Chief Complaint Chief Complaint productive cough x 2days. hx asthma. Denies SOB HPI 26-year-old male presents here to emergency department for complaints of cough for 2 days. Patient has been having cough with whitish phlegm, does not cough up any blood. Patient has wheezing at times. Patient has history of asthma, he ran out of his inhaler, his inhaler has been helping. Patient without any fever chills. Patient without any sick contacts. Patient denies any chest pain or palpitations. Patient denies any sore throat or ear pain. ROS All systems reviewed and are negative except as per history of present illness. Medications Home Meds Active Scripts Prednisone* (Prednisone*) 50 Mg Tablet, 50 MG PO DAILY for 5 Days, TAB Prov:RENZO SANTOS NP 03/08/17 Cetirizine Hcl* (Zyrtec*) 10 Mg Capsule, 10 MG PO DAILY, #30 TAB.CHEW Prov:RENZO SANTOS NP 03/08/17 Sfijtgatydg-K-Watdfhdnpq Hb* (Guaifenesin* DM Syrup) 120 Ml Syrup, 10 ML PO Q4H Y for COUGH, #120 ML Prov:RENZO SANTOS NP 03/08/17 Mometasone-Formoterol (Dulera) 100-5 Mcg - 13 Gm Hfa.aer.ad, 2 PUFFS INHALATION BID, #1 INHALER Prov:RENZO SANTOS NP 03/08/17 Albuterol Sulfate* (Ventolin HFA*) 18 Gm Hfa.aer.ad, 2 PUFF IH Q4H Y for WHEEZING AND RESP DISTRESS, #1 EA Prov:RENZO SANTOS NP 03/08/17 Budesonide-Formoterol Fumarate* (Symbicort*) 80-4.5 Inha, 2 PUFFS INHALATION BID , #1 EACH Prov:JOHN NEGRON NP 12/11/16 Albuterol Sulfate* (Ventolin HFA*) 18 Gm Hfa.aer.ad, 2 PUFF INHALATION Q4H, #1 INHALER Prov:JOHN NEGRON NP 12/11/16 Levofloxacin* (Levofloxacin*) 500 Mg Tablet, 500 MG PO DAILY for 5 Days, TAB Prov:BRAYAN COTTON MD 06/14/16 Allergies Allergies: Coded Allergies: No Known Allergy (Unverified , 03/08/17) PMhx/Soc Medical and Surgical Hx: pt denies Surgical Hx History of Surgery: No Anesthesia Reaction: No Hx Neurological Disorder: No Hx Respiratory Disorders: Yes (Asthma) Hx Cardiac Disorders: No Hx Psychiatric Problems: No Hx Miscellaneous Medical Probl: No Hx Alcohol Use: No Hx Substance Use: No Hx Tobacco Use: No FmHx Family History: No coronary disease, No diabetes, No other Physical Exam Vitals Vital Signs Date Time Temp Pulse Resp B/P Pulse Ox O2 Delivery O2 Flow Rate FiO2 03/08/17 18:43 98.2 86 18 158/99 98 Physical Exam GENERAL: The patient is well developed and appropriate for usual state of health, in no apparent distress. CHEST: Clear to auscultation bilaterally. There are no rales, wheezes or rhonchi. HEART: Regular rate and rhythm. No murmurs, clicks, rubs or gallops. No S3 or S4. ABDOMEN: Soft, nontender and nondistended. Good bowel sounds. No rebound or guarding. No gross peritonitis. No gross organomegaly or masses. No Ng sign or McBurney point tenderness. BACK: No midline or flank tenderness. EXTREMITIES: Equal pulses bilaterally. There is no peripheral clubbing, cyanosis or edema. No focal swelling or erythema. Full range of motion. Grossly neurovascularly intact. NEURO: Alert and oriented. Cranial nerves 2-12 intact. Motor strength in all 4 extremities with 5/5 strength. Sensation grossly intact. Normal speech and gait. SKIN: There is no apparent rash or petechia. The skin is warm and dry. HEMATOLOGIC AND LYMPHATIC: There is no evidence of excessive bruising or lymphedema. No gross cervical, axillary, or inguinal lymphadenopathy. Procedures/MDM Medical Decision Making: Patient symptoms are most likely consistent with acute bronchitis, which viral in origin. There is low suspicion for Pneumonia at this time since patients lungs sounds are clear, patient O2 saturation is normal and patient doesnt show any respiratory distress. Radiology exams not indicated at this time. Not actively wheezing at this time, no symptoms of any respiratory distress. There is low suspicion for other cardiopulmonary emergencies at this time such as CHF, Pulmonary Embolism, Pneumothorax, Aortic Aneurysm or any other cardiopulmonary emergencies at this time. There is low suspicion for sepsis. Patient appears well and is hemodynamically stable. Disposition: Home. Condition: Stable Prescriptions: Prednisone Zyrtec with guaifenesin DM Dulera albuterol Instructions: Patient is advised to take medications as prescribed. Patient is advised to rest. Patient advised to increase fluid intake, do humidifier at home and if possible, do salt water gargles. Patient is advised that if symptoms are worse, shortness of breath, uncontrolled fever, stridor, vomiting, worst signs and symptoms to return to emergency department immediately. Otherwise, patient is advised to follow up with primary doctor in 5-7 days. Disclaimer: Inadvertent spelling and grammatical errors are likely due to EHR/ dictation software use and do not reflect on the overall quality of patient care. Also, please note that the electronic time recorded on this note does not necessarily reflect the actual time of the patient encounter. Departure Diagnosis: Primary Impression: Acute bronchitis Bronchitis organism: unspecified organism Qualified Code: J20.9 - Acute bronchitis, unspecified organism Additional Impression: History of asthma Condition: Stable Patient Instructions: Bronchitis With Wheezing (Adult) RENZO SANTOS NP Mar 08, 2017 19:59
== END 2017-03-08 19:23 | disposition home or self-care (01) ==
LOC: E/R 18:26
DX: J20.9 Acute bronchitis, unspecified (principal); J45.909 Unspecified asthma, uncomplicated
CPT/HCPCS: 99282

== ENCOUNTER 2017-07-14 00:33 | Emergency (ER) | END 2017-07-14 03:40 | disposition left against medical advice (07) ==

== ENCOUNTER 2019-01-16 02:55 | Emergency (ER) | payer OTHER ==
[~2019-01-16] VITALS: Ht 180.3 cm; Wt 100.0 kg
[~2019-01-16 02:55] MED LIST changes: +ALBU8.5H8 INH; +CETI10CA PO; +GUAI120S25 PO; +PRED20TA PO; +PRED50TA PO
[2019-01-16 02:57] VITALS: Ht 180.3 cm; Wt 100.0 kg
[2019-01-16] MEDS ORDERED: SOD CHLORIDE 0.9% 500 ML IV STA (03:17)
[2019-01-16] MEDS ORDERED: METHYLPREDNISOLONE 125 MG INJ IV STA (03:17)
[2019-01-16] MEDS ORDERED: IPRATROPIUM (NEB) 0.5 MG/2.5 ML AMP INH STA (03:17)
[2019-01-16] MEDS ORDERED: ALBUTEROL 0.5% (NEB) 2.5 MG/0.5 ML AMP INH STA (03:17)
[2019-01-16 04:44] VITALS: BP 159/91; PULSE 88; RESP 18
[2019-01-16] MEDS ORDERED: HALOPERIDOL 5 MG INJ IM ONE (05:00)
[2019-01-16] MEDS ORDERED: DIPHENHYDRAMINE 50 MG INJ IM ONE (05:00)
[2019-01-16] MEDS ORDERED: LORAZEPAM 2 MG INJ IM ONE (05:00)
== END 2019-01-16 05:00 | disposition home or self-care (01) ==
LOC: E/R 02:55
DX: J45.41 Moderate persistent asthma with (acute) exacerbation (principal)
CPT/HCPCS: 71045; 80048; 84484; 85025; 94644; 96374; J2930; J7040; Z7502; Z7610